=== PATIENT | female | born 1960 | race African-American/Black ===

== ENCOUNTER 2017-10-11 07:30 | Emergency (ER) | payer OTHER ==
[2017-10-11 07:46] VITALS: BMI 29.8
--- NOTE | 2017-10-11 07:49 | PDOC ---
History of Present Illness - General Chief Complaint: Lightheaded Stated Complaint: DIZZINESS - History of Present Illness Initial Comments: Patient is a 57 year old female, with a significant past medical history of DM2 , who presents to the emergency department complaining of dizziness that began this AM. Pt was in her usual state of health until this AM when she states she woke up and took a shower. While showering she felt lightheaded and felt like the room was spinning. She denies any tinnitus, KWOK, chest pain, palpitations, shortness of breath, leg weakness at this time. Her symptoms partially resolved and went to work. While at work she noted lightheadedness again and came to ED. Per pt, the symptoms seem to be worse with standing and rapid head movement. She does not feel them while sitting. She did not eat breakfast this AM, but endorses good oral intake. No prior history of lightheadness or other neuro symptoms. Pt is diabetic and did not take her insulin last night. No sick contacts or recent travel. Prior fall in 12/[address] The patient denies chest pain, shortness of breath, headache. Denies fever, chills, nausea, vomiting, diarrhea and constipation. Denies dysuria, frequency, urgency and hematuria. Allergies: None Past surgical history: None Social History: Denies toxic habits PMD: Dr. Cooper 10/11/17 07:49 Past History - Past Medical History Allergies/Adverse Reactions: Allergies Allergy/AdvReac Type Severity Reaction Status Date / Time No Known Allergies Allergy Verified 10/11/17 07:43 Home Medications: Ambulatory Orders Insulin (Novolog) [Novolog -] See Protocol SQ ASDIR 10/11/17 Diabetes: Yes - Suicide/Smoking/Psychosocial Hx Smoking History: Never smoked Have you smoked in the past 12 months: No Hx Alcohol Use: No Drug/Substance Use Hx: No Substance Use Type: None Review of Systems - Review of Systems Comments:: GENERAL/CONSTITUTIONAL: No fever or chills. No weakness. HEAD, EYES, EARS, NOSE AND THROAT: No change in vision. No ear pain or discharge. No sore throat. CARDIOVASCULAR: No chest pain or shortness of breath RESPIRATORY: No cough, wheezing, or hemoptysis. GASTROINTESTINAL: No nausea, vomiting, diarrhea or constipation. GENITOURINARY: No dysuria, frequency, or change in urination. MUSCULOSKELETAL: No joint or muscle swelling or pain. No neck or back pain. SKIN: No rash NEUROLOGIC: +Lightheadedness. No headache, loss of consciousness, or change in strength/sensation. ENDOCRINE: No increased thirst. No abnormal weight change HEMATOLOGIC/LYMPHATIC: No anemia, easy bleeding, or history of blood clots. ALLERGIC/IMMUNOLOGIC: No hives or skin allergy. 10/11/17 07:49 *Physical Exam - Vital Signs Last Vital Signs Temp Pulse Resp BP Pulse Ox 98.2 F 85 16 155/92 100 10/11/17 07:43 10/11/17 07:43 10/11/17 07:43 10/11/17 07:43 10/11/17 07:43 - Physical Exam Comments: GENERAL: Middle age woman, Awake, alert, and fully oriented, in no acute distress HEAD: No signs of trauma, normocephalic, atraumatic EYES: PERRLA, EOMI, sclera anicteric, conjunctiva clear ENT: Auricles normal inspection, hearing grossly normal, nares patent, oropharynx clear without exudates. Moist mucosa NECK: Normal ROM, supple, no lymphadenopathy, JVD, or masses LUNGS: No distress, speaks full sentences, clear to auscultation bilaterally HEART: Regular rate and rhythm, normal S1 and S2, no murmurs, rubs or gallops, peripheral pulses normal and equal bilaterally. ABDOMEN: Soft, nontender, normoactive bowel sounds. No guarding, no rebound. No masses EXTREMITIES : Normal inspection, Normal range of motion, no edema. No clubbing or cyanosis. NEUROLOGICAL: Cranial nerves II through XII grossly intact. Normal speech, normal gait, no focal sensorimotor deficits SKIN: Warm, Dry, normal turgor, no rashes or lesions noted 10/11/17 07:49 ED Treatment Course - LABORATORY CBC & Chemistry Diagram: 10/11/17 08:54 10/11/17 08:54 Medical Decision Making - Medical Decision Making 57 year old female, with a significant past medical history of DM2, who presents to the emergency department complaining of dizziness that began this AM. DDX included dehydration, hypo/hyperglycemia, BPPM, intracranial process, cardiac arrhythmia, carotid stenosis, psych-induced, infectious or metabolic derangement. Plan: - CBC, CMP - EKG - Orthostatic vitals - Oral hydration - Consider carotid U/S 10/11/17 08:49 Labs normal. Pt symptoms improved with oral feeding/hydration. No orthostatic BP. Instructed to f/u with PMD at earliest convenience for management of hypertension. 10/11/17 11:08 *DC/Admit/Observation/Transfer Diagnosis at time of Disposition: Lightheadedness - Discharge Dispostion Disposition: HOME Condition at time of disposition: Good Decision to Admit order: No - Referrals Referrals: Gabe Cooper MD [Primary Care Provider] - 1 week - Patient Instructions Additional Instructions: During your visit to the [facility] ED, you were evaluated for lightheadness. You received hydration and standard lab tests, which were relatively unremarkable. You are being discharged home with outpatient follow-up with your primary care provider in the next week. You were noted to be hypertensive during your visit. Please bring this to the attention of your primary physician. Please drink plenty of fluids and eat your meals regularly. If you experience any of the following symptoms, please return to the ED: - Persistent lightheadedness - Any signs of bleeding, such as blood in your urine or bowel movements - Changes in vision, numbness/weakness in any extremities, or persistent dizziness/loss of consciousness - Any ringing in your ears or loss of hearing - palpitations, pain in your chest, or shortness of breath - Any new or concerning symptoms - Post Discharge Activity Forms/Work/School Notes: Back to Work
--- NOTE | 2017-10-11 08:54 | PDOC ---
Attending Attestation - Resident Resident Name: Hua Wellsua - ED Attending Attestation I have performed the following: I have examined & evaluated the patient, The case was reviewed & discussed with the resident, I agree w/resident's findings & plan, Exceptions are as noted - HPI HPI: 10/11/17 08:52 57y F hx of IDDM, presents with complaint of feeling lightheaded that was room spining when she went to take a shower, the symptoms resolved shortly afterwards. no associated dysarthria, diplopia, cp, palpitations, sob, n/v, headache, numbnes/tingling/weakness, neck pain, back pain, abd pain. Patient is currently feeling well although when she is standing still feels slightly lightheaded but not vertiginous. He states that she did not eat any breakfast this morning. She has never felt like this before. On exam the patient is well-appearing, in no distress, with a normal neurologic exam including normal rapid alternating movements, finger nose. Suspect that the patient's symptoms secondary to orthostasis versus peripheral vertigo. EKG to screen for arrhythmia We'll check basic blood work to rule out anemia, metabolic derangements. By mouth hydration, will give the patient some food Will reassess - Physicial Exam PE: 10/12/17 20:16 see above - Medical Decision Making at discharge pt feeling improved tolerating oral intake no longer dizzy labs unremarkble will dc with pmd fu return precautions were dsicussed Heart Score/ECG Review - ECG Impressions Comment:: 10/11/17 09:46 Twelve-lead EKG was performed and reviewed by me. There is normal sinus rhythm with a normal rate. Rate of 84 The axis is normal. The intervals are normal. There is normal R wave progression There are no ST or T wave abnormalities.
[2017-10-11 09:05] LABS: BASO % 0.6 % (0-2.0); EOS % 1.3 % (0-4.5); HEMATOCRIT 38.5 % (32.4-45.2); HEMOGLOBIN 12.4 GM/dL (10.7-15.3); LYMPH % 15.6 % (8-40); MCHC 32.2 g/dl (32.0-36.0); MEAN CELL VOLUME 86.9 fl (80-96); MEAN PLT VOLUME 7.8 fl (7.5-11.1); MONO % 4.1 % (3.8-10.2); NEUT % 78.4 % (42.8-82.8); PLATELET COUNT 225 K/MM3 (134-434); RBC 4.43 M/mm3 (3.60-5.2); RDW 14.6 % (11.6-15.6); WHITE BLOOD COUNT 7.4 K/mm3 (4.0-10.0)
[2017-10-11 09:51] LABS: ALBUMIN 3.6 g/dl (3.4-5.0); ALK PHOS 50 U/L (45-117); ANION GAP 8 (8-16); BILIRUBIN,TOTAL 0.8 mg/dL (0.2-1.0); BLOOD UREA NITROGEN 26 mg/dL (7-18); CALCIUM 9.1 mg/dL (8.5-10.1); CHLORIDE 105 mmol/L (98-107); CO2 28 mmol/L (21-32); CREATININE 1.2 mg/dL (0.55-1.02); GLUCOSE,RANDOM 203 mg/dL (74-106); POTASSIUM 4.7 mmol/L (3.5-5.1); SGOT/AST 20 U/L (15-37); SGPT/ALT 22 U/L (12-78); SODIUM 141 mmol/L (136-145); TOT PROT 7.6 g/dl (6.4-8.2)
[2017-10-11 09:56] LABS: URINE APPEARANCE CLEAR; URINE BILIRUBIN NEGATIVE (<2.0 mg/dL); URINE COLOR STRAW; URINE GLUCOSE (UA) NEGATIVE (NEGATIVE); URINE KETONE NEGATIVE (NEGATIVE); URINE LEUK ESTERASE NEGATIVE (NEGATIVE); URINE NITRITE NEGATIVE (NEGATIVE); URINE PROTEIN NEGATIVE (NEGATIVE); URINE UROBILINOGEN NEGATIVE mg/dL (0.2-1.0)
--- NOTE | 2017-10-11 10:26 | EKG ---
Test Reason : Blood Pressure : / mmHG Vent. Rate : 084 BPM Atrial Rate : 084 BPM P-R Int : 146 ms QRS Dur : 072 ms QT Int : 374 ms P-R-T Axes : 054 013 060 degrees QTc Int : 441 ms NORMAL SINUS RHYTHM SEPTAL INFARCT (CITED ON OR BEFORE 31-MAR-2011) ABNORMAL ECG WHEN COMPARED WITH ECG OF 31-MAR-2011 18:21, NONSPECIFIC T WAVE ABNORMALITY NOW EVIDENT IN LATERAL LEADS Confirmed by MAIRA TRIPLETT MD ([id number]) on 10/11/2017 10:25:30 AM Referred By: Confirmed By:MAIRA TRIPLETT MD
[2017-10-11 11:45] VITALS: BP 131/68; PULSE 78; TEMP 98.1
== END 2017-10-11 11:43 | disposition home or self-care (01) ==
LOC: JER 07:30
DX: R42 Dizziness and giddiness (principal); E11.9 Type 2 diabetes mellitus without complications; Z79.4 Long term (current) use of insulin
CPT/HCPCS: 36415; 80053; 81003; 82962; 85025; 93005; 93010; 99284-25

== ENCOUNTER 2023-12-29 19:25 | Emergency (ER) | payer OTHER ==
[2023-12-29 19:34] VITALS: BP 164/82; PULSE 92; RESP 18; TEMP 97.9; BMI 30.2
[2023-12-29] MEDS ORDERED: ONDANSETRON 4 MG/2 ML VIAL ONE (19:52)
[2023-12-29] MEDS: ONDANSETRON 4 MG/2 ML VIAL IVPUSH ONE (20:43)
[2023-12-29 20:45] LABS: BASO % 0.6 % (0-2.0); HEMATOCRIT 45.6 % (32.4-45.2); HEMOGLOBIN 14.7 GM/dL (10.7-15.3); LYMPH % 11.5 % (8-40); MCH 28.3 pg (25.7-33.7); MCHC 32.3 g/dl (32.0-36.0); MEAN CELL VOLUME 87.6 fl (80-96); MEAN PLT VOLUME 8.6 fl (7.5-11.1); MONO % 1.8 % (3.8-10.2); NEUT % 86.1 % (42.8-82.8); PLATELET COUNT 257 10^3/uL (134-434); RBC 5.21 M/mm3 (3.60-5.2); RDW 15.1 % (11.6-15.6); WHITE BLOOD COUNT 8.7 K/mm3 (4.0-10.0)
[2023-12-29] MEDS: SODIUM CHLORIDE 0.9% 500 ML INFUS.BAG IV ONE (20:45)
[2023-12-29 21:03] LABS: POTASSIUM 4.9 mmol/L (3.5-5.1)
[2023-12-29 21:05] LABS: CALCIUM 10.4 mg/dL (8.5-10.1)
[2023-12-29 21:06] LABS: ALBUMIN 4.4 g/dl (3.4-5.0); MAGNESIUM 2.4 mg/dL (1.8-2.4)
[2023-12-29 21:09] LABS: CREATININE 1.5 mg/dL (0.55-1.3)
[2023-12-29 21:10] LABS: BILIRUBIN,TOTAL 0.6 mg/dL (0.2-1); TOT PROT 8.3 g/dl (6.4-8.2)
== END 2023-12-29 22:51 | disposition home or self-care (01) ==
LOC: JER 19:25
PROC: 3E033GC Introduction of Other Therapeutic Substance into Peripheral Vein, Percutaneous Approach (ICD-10-PCS; principal; 2023-12-29)
DX: R11.2 Nausea with vomiting, unspecified (principal); R42 Dizziness and giddiness; Z20.822 Contact with and (suspected) exposure to COVID-19
CPT/HCPCS: 0241U-QW; 36415; 80053; 83735; 84484; 85025; 93005; 93010; 99284-25